=== PATIENT | male | born 1945 | race Two or more races ===

== ENCOUNTER 2018-05-18 08:36 | Day surgery (SDC) | payer MEDICARE, BC ==
[2018-05-18] VITALS (9 sets, daily range): BP systolic 143–149; BP diastolic 73–86
[~2018-05-18] VITALS: Ht 182.9 cm; Wt 74.8 kg
[2018-05-18] MEDS ORDERED: NKM (09:23)
--- NOTE | 2018-05-18 09:36 | Short Stay Surgery H&P ---
History of Present Illness History of Present Illness Chief Complaint Abdominal pains/screening colonoscopy. MÓNICA Lockett is a 72 year old male who was admitted on for Abdominal Pain/ Gerds/screening colon Patient History PAST MEDICAL HISTORY: (1) Hyperlipemia (2) History of hip surgery Medication History Scheduled No Known Medications* (NKM - No Known Medications*), 0 ., (Reported) Review of Systems Cardiovascular: Reports: no symptoms Respiratory: Reports: no symptoms Skeletal: Reports: trauma Gastrointestinal: Reports: gastro esophageal reflux disease Genitourinary: Reports: no symptoms Endocrine: Reports: no symptoms Hematologic: Reports: no symptoms Physical Exam Vital Signs Last Vital Signs Date Time Temp Pulse Resp B/P (MAP) Pulse Ox O2 Delivery O2 Flow Rate FiO2 05/18/18 09:29 Room Air 05/18/18 09:27 97.8 67 18 148/73 97 Skin: normal HENT: normal Heart: normal Lungs: normal Abdomen: normal Extremities: normal Genitourinary: normal Plan Plan of Care Upper and lower GI endoscopies with obtaining biopsies if needed. Preop Interventions None. Summary of Findings see the reports Attestation Are the patient's medical conditions optimized for surgery? Attestation Response: yes Chet Shrestha MD May 18, 2018 09:36
--- NOTE | 2018-05-18 09:38 | Pre-Procedure Note/Attestation ---
Pre-Procedure Note/Attestation Complete Prior to Procedure Planned Procedure: left Procedure Narrative: Examination of the upper and the lower GI. tract via endoscopy with possible obtaining biopsies. Indications for Procedure Pre-Operative Diagnosis: R/O gastritis/colon polyps. Attestation I attest that I discussed the nature of the procedure; its benefits; risks and complications; and alternatives (and the risks and benefits of such alternatives ), prior to the procedure, with the patient (or the patient's legal nutrition representative). I attest that, if there was a reasonable possibility of needing a blood transfusion, the patient (or the patient's legal nutrition representative) was given the [place] [employer] standardized written summary, pursuant to the Ryan Shawn Blood Safety Act ([place] Health and Safety Code # 1645, as amended). I attest that I re-evaluated the patient just prior to the surgery and that there has been no change in the patient's H&P, except as documented below: Chet Shrestha MD May 18, 2018 09:38
[2018-05-18] MEDS ORDERED: LR 1000ml ONE (10:30)
[2018-05-18] MEDS ORDERED: Propofol 200mg/20ml IV ONE (10:30)
[2018-05-18] MEDS ORDERED: Lidocaine 1% MPF 10mg/ml 5ml ONE (10:30)
--- NOTE | 2018-05-18 11:07 | Anethesia Preoperative Eval ---
Anesthesia Pre-op PMH/ROS General Date of Evaluation: May 18, 2018 Time of Evaluation: 10:32 Anesthesiologist: Ann Ware CRNA ASA Score: ASA 2 Mallampati Score Class I : Soft palate, uvula, fauces, pillars visible Class II: Soft palate, uvula, fauces visible Class III: Soft palate, base of uvula visible Class IV: Only hard plate visible Mallampati Classification: Class III Surgeon: Henrietta Diagnosis: Abdominal pain, GERD Surgical Procedure: EGD and colonoscopy Anesthesia History: none Family History: no anesthesia problems Allergies: Coded Allergies: No Known Allergies (Unverified , 05/18/18) Medications: see eMAR Patient NPO?: Yes NPO Date: May 18, 2018 NPO Time: 03:00 Past Medical History Cardiovascular: Reports: other - Hyperlipdemia; Denies: HTN, CAD, ME, valve dz, arrhythmia Pulmonary: Denies: asthma, COPD, JOAQUIN, other Gastrointestinal/Genitourinary: Reports: GERD; Denies: CRI, ESRD, other Neurologic/Psychiatric: Denies: dementia, CVA, depression/anxiety, TIA, other Endocrine: Denies: DM, hypothyroidism, steroids, other HEENT: Reports: cataract (L), cataract (R); Denies: glaucoma, ASSINIBOINE AND [place]BES (L), ASSINIBOINE AND [place] TRIBES (R), other Hematology/Immune: Denies: anemia, DVT, bleeding disorder, other Musculoskeletal/Integumentary: Reports: other - LEFT hip surgery, s/p fall; Denies: OA, RA, DJD, DDD, edema PMH Narrative: as above PSxH Narrative: hip surgery Anesthesia Pre-op Phys. Exam Physician Exam Last Vital Signs Date Time Temp Pulse Resp B/P (MAP) Pulse Ox O2 Delivery O2 Flow Rate FiO2 05/18/18 09:29 Room Air 05/18/18 09:27 97.8 67 18 148/73 97 Constitutional: NAD Neurologic: CN 2-12 intact Cardiovascular: RRR, no M/R/G Respiratory: CTA Gastrointestinal: S/NT/ND Airway Exam Mallampati Score: Class III MO: full Neck: FROM TMD: > 3 FB ROM: full Teeth: intact Dentures: no upper, no lower Anesthesia Pre-op A/P Risk Assessment & Plan Assessment: ASA 2, ok to proceed Plan: MAC Status Change Before Surgery: No Pre-Antibiotics Given Within 1 Hr of Incision: No Ann Ware CRNA May 18, 2018 11:07
--- NOTE | 2018-05-18 11:19 | Endoscopy Procedure Note ---
Endoscopy Procedure Note General Indication for Procedure: Abdominal pains, GERds, screening colon Procedures Performed: EGD - Small sliding Hiatal Hernia otherwise normal Upper GI. endoscopy. Biopsy done per random from gastric body., colonoscopy - Minimal internal hemorrhoids with external hemorrhoidal skin tags, Highly redundant left colon with diverticular lesions, otherwise normal colon. Specimen: yes Pt Tolerated Procedure Well: Yes Anesthesia Anesthesiologist: Ms. Jeanie NGUYEN Anesthesia: moderate sedation Medications Medication Given: see anesthesia record Inserted Devices Implant(s) used?: No Quality Quality of Bowel Preparation: Excellent Was there any complications?: No GI Core Measures 50 yrs or older w/o bx or poly: Yes 10yrs. F/U not recommended: No If not recommended, why?: 10 yrs. F/U needed: Yes 18 years or older w/prev. colo: No <3yrs. since last colonoscopy: No Med reason:<3 yrs.: System Reason:<3 yrs.: Ceht Shrestha MD May 18, 2018 11:19
--- NOTE | 2018-05-18 11:21 | Discharge Instructions ---
Discharge Instructions Discharge Instructions Follow up with: Doctor will discuss with . For Congestive Heart Failure Reminder Report to your physician any weight gain of 5 pounds or more in one week. Chet Shrestha MD May 18, 2018 11:21
--- NOTE | 2018-05-18 11:32 | Immediate Post-Op Evaluation ---
Immediate Post-Op Evalulation Immediate Post-Op Evalulation Procedure: EGD, colonoscopy Date of Evaluation: May 18, 2018 Time of Evaluation: 11:20 IV Fluids: LR 600 ml Blood Pressure Systolic: 146 Blood Pressure Diastolic: 77 Pulse Rate: 69 Respiratory Rate: 22 O2 Sat by Pulse Oximetry: 100 Temperature (Fahrenheit): 97.3 Pain Score (1-10): 0 Nausea: No Vomiting: No Complications none Patient Status: awake, patent Hydration Status: adequate Given Within 1 Hr of Incision: Ann Seay CRNA May 18, 2018 11:32
--- NOTE | 2018-05-18 12:35 | 48 Hour Post Anesthesia Eval ---
Post Anesthesia Evaluation Procedure: EGD, colonoscopy Date of Evaluation: May 18, 2018 Time of Evaluation: 12:34 Blood Pressure Systolic: 143 0: 76 Pulse Rate: 67 Respiratory Rate: 19 Temperature (Fahrenheit): 97.7 O2 Sat by Pulse Oximetry: 99 Airway: patent Nausea: No Vomiting: No Pain Intensity: 0 Hydration Status: adequate Cardiopulmonary Status: stable Follow-up Care/Observations: per GI Post-Anesthesia Complications: none Follow-up care needed: ready to discharge Ann Ware CRNA May 18, 2018 12:35
--- NOTE | 2018-05-18 18:45 | Operative Note - Dictated ---
DATE OF OPERATION: 05/18/2018 SURGEON: Chet Shrestha M.D. PROCEDURE: Total colonoscopy. PREOPERATIVE DIAGNOSIS: Screening colonoscopy. POSTOPERATIVE DIAGNOSES: 1. Evidence of minimal internal hemorrhoids of no friability. 2. Evidence of diverticulosis of the left colon. 3. Highly redundant left colon, otherwise completely normal total colonoscopy up to the base of the cecum as examined. MEDICATION USED: Per Ms. Jeanie CRNA. INSTRUMENT: GIF Olympus videocolonoscope. DESCRIPTION OF PROCEDURE: The patient after arriving in the endoscopy unit, was told about risks and benefits of the procedure, which he accepted and signed informed consent. At this time, the scope was gradually advanced towards the anal area, which revealed evidence of hemorrhoidal skin tags. Upon entering into the rectum, a retroflexion maneuver was applied and revealed there was evidence of minimal internal hemorrhoids, which were not friable and of no great significance. At this time, the scope was passed through highly redundant left colon as numerous diverticular lesions were also seen. There was no evidence of inflammatory processes, strictures, tumors, etc. Finally with maneuvers, the scope was guided into the splenic flexure, transverse colon, right colon all the way to the base of the cecum. All these areas also remained to be completely normal. The colon cleanup was adequate. At this time, within 6 minutes the scope was gradually pulled out and reexamination of the colon did not reveal any other abnormalities except what is stated earlier. The patient tolerated the procedure well, left the endoscopy room in a good condition. Chet Shrestha M.D. DR: NATIVIDAD JOB#: [id number] CC:
--- NOTE | 2018-05-18 19:00 | Procedure Note ---
DATE OF PROCEDURE: 05/18/2018 SURGEON: Chet Shrestha M.D. PROCEDURE: Esophagogastroduodenoscopy with biopsy PREOPERATIVE DIAGNOSES: Abdominal pain. POSTOPERATIVE DIAGNOSIS: Evidence of a small sliding hiatal hernia, otherwise, completely normal upper GI endoscopy. Biopsy was taken per random from gastric body. MEDICATION USE: Per anesthetic, Ms. WarePATRICK. INSTRUMENT: GIF Olympus upper GI video endoscope. DESCRIPTION OF PROCEDURE: The patient after arriving in the endoscopy unit, was told about risks and benefits of the procedure which he accepted and signed informed consent. He was then put on the left lateral decubitus position. After adequate IV sedation, the scope was gently passed through the cricopharyngeal area and was lodged into the upper esophagus and gradually advanced towards gastroesophageal junction. The entire length of esophagus looked normal without any evidence of pathology such as varices, inflammatory process, stricture, ulcers, exudative process, etc. GE junction also looked normal however there was evidence of a small sliding hiatal hernia of no great significance. No evidence of Valiente's noted. The scope at this time was guided into the stomach. Gastric cavity was distended and gradually the areas of the fundus and the body and the antrum were examined which they looked completely normal and a retroflexion maneuver was also applied and the gastroesophageal junction was examined in a retrograde fashion which revealed no other abnormalities as mentioned. At this point, one random biopsy from gastric body obtained and subsequently the scope was passed through the antrum, pylorus. First and second portion of duodenum were found to be completely normal. Finally, after obtaining the random biopsy from gastric body, procedure was terminated. The patient tolerated the procedure well. Chet Shrestha M.D. DR: Lisa JOB#: [id number] CC:
== END 2018-05-18 12:20 | disposition home or self-care (01) ==
LOC: GAS 08:36
DX: Z12.11 Encounter for screening for malignant neoplasm of colon (principal); K64.8 Other hemorrhoids; K57.90 Diverticulosis of intestine, part unspecified, without perforation or abscess without bleeding; K44.9 Diaphragmatic hernia without obstruction or gangrene; E78.5 Hyperlipidemia, unspecified; K21.9 Gastro-esophageal reflux disease without esophagitis; K29.70 Gastritis, unspecified, without bleeding; B96.81 Helicobacter pylori [H. pylori] as the cause of diseases classified elsewhere
CPT/HCPCS: 43239; G0121; J2704; 94003; 94150